=== PATIENT | male | born 1945 | race Caucasian/White ===

== ENCOUNTER 2023-12-19 18:02 | Emergency (ER) | payer OTHER ==
[~2023-12-19] VITALS: Ht 162.6 cm; Wt 79.4 kg
[2023-12-19 18:06] VITALS: BP_SYST 123; PULSE 63; RESP 17; TEMP 98.1; O2SAT 95
[2023-12-19] MEDS: ASPIRIN 325 MG TABLET PO ONE (19:28)
[2023-12-19 19:30] LABS: BASOPHILS % (AUTO) 0.6 % (0.0-2.0); EOSINOPHILS # (AUTO) 0.2 K/uL (0.0-0.4); EOSINOPHILS % (AUTO) 4.4 % (0.0-4.0); HEMATOCRIT 39.6 % (36-54); HEMOGLOBIN 13.4 g/dL (14.0-18.0); LYMPHOCYTES # (AUTO) 1.1 K/uL (1.0-5.5); LYMPHOCYTES % (AUTO) 30.4 % (20.5-51.5); MEAN CORPUSCULAR HEMOGLOBIN 32 pg (27-31); MEAN CORPUSCULAR HGB CONC 34 % (32-36); MEAN CORPUSCULAR VOLUME 95 fL (79.0-98.0); MONOCYTES # (AUTO) 0.4 K/uL (0.0-1.0); MONOCYTES % (AUTO) 11.4 % (1.7-9.3); NEUTROPHILS # (AUTO) 1.8 K/uL (1.8-7.7); NEUTROPHILS % (AUTO) 53.2 % (40.0-70.0); PLATELET COUNT (AUTO) 145 K/uL (130-430); RED BLOOD CELL COUNT(AUTO) 4.17 MIL/uL (4.2-6.2); RED CELL DISTRIBUTION WIDTH 13.5 % (9.0-15.0); WHITE BLOOD COUNT (AUTO) 3.5 K/uL (4.8-10.8)
[2023-12-19 20:04] LABS: ANION GAP 8 (5-15); CALCIUM 8.9 mg/dL (8.4-11.0); CARBON DIOXIDE 27 mmol/L (23-29); CHLORIDE 105 mmol/L (98-107); CREATININE 0.99 mg/dL (0.55-1.30); GLUCOSE 105 mg/dL (74-106); POTASSIUM 4.4 mmol/L (3.5-5.1); SODIUM SERUM 140 mmol/L (136-145); UREA NITROGEN, BLOOD 11 mg/dL (8-21)
[2023-12-19 22:34] VITALS: TEMP 98.6
[2023-12-19 22:35] VITALS: BP_SYST 116; PULSE 54; RESP 18; O2SAT 96
== END 2023-12-19 22:33 | disposition home or self-care (01) ==
LOC: SED 18:02
DX: R07.9 Chest pain, unspecified (principal); Z95.818 Presence of other cardiac implants and grafts
CPT/HCPCS: 36415; 80048; 84484; 85025; 93005; 99284